=== PATIENT | male | born 1970 | race African-American/Black ===

== ENCOUNTER 2016-06-23 21:04 | Emergency (ER) | payer OTHER ==
[2016-06-23 23:56] LABS: ALANINE AMINOTRANSFERASE 53 U/L (21-72); ALBUMIN 4.2 g/dL (3.5-5.0); ALKALINE PHOSPHATASE 64 U/L (38-126); ANION GAP 9 (5-19); ASPARTATE AMINO TRANSFERASE 27 U/L (17-59); BLOOD UREA NITROGEN 14 mg/dL (7-20); CALCIUM 10.1 mg/dL (8.4-10.2); CARBON DIOXIDE 30 mmol/L (22-30); CHLORIDE 105 mmol/L (98-107); CREATININE RESULT 1.12 mg/dL (0.52-1.25); GLUCOSE 125 mg/dL (75-110); POTASSIUM 4.1 mmol/L (3.6-5.0); SODIUM 144.2 mmol/L (137-145); TOTAL PROTEIN 7.1 g/dL (6.3-8.2)
[2016-06-24] MEDS ORDERED: NAPROXEN 250 MG TABLET PO ONE (01:33)
[2016-06-24] MEDS ORDERED: HYDROCODONE/ACETAMINOPHEN 5-325 MG TABLET PO ONE (01:33)
--- NOTE | 2016-06-24 01:40 | ER Document Report ---
ED Neck/Back Problem - General Chief Complaint: Back Injury Stated Complaint: BACK PAIN Mode of Arrival: Ambulatory Information source: Patient Notes: 46 y/o F presents to ED c/o lower back pain. Pt reports sudden onset bilateral lower back sharp pain while lifting his 2 year old son this evening. Reports pain is worse with movement of back and ambulation. Reports diagnosed with colorectal CA last february and last received chemo and radiation on June 06. Denies fever, extremity weakness/numbness/tingling, saddle numbness or incontinence. Reports similar episode in the past but has been over a year since last. TRAVEL OUTSIDE OF THE [place] IN LAST 30 DAYS: No - HPI Patient complains to provider of: Lower back Onset: This evening Where: Home Onset: Sudden Timing: Still present Quality of pain: Sharp Severity: Moderate Pain Level: 3 Context: Lifting Recent injury: Possibly Associated symptoms: Like prior neck/back pain, Lower back pain. denies: None, Abdominal pain, Chest pain, Chills, Constipation, Fever, Incontinence, Motor loss, Numbness/tingling, Radiation to arm, Radiation to chest, Radiation to leg , Sensory loss, Sweaty, Unable to urinate, Upper back pain, Other Exacerbated by: Movement of trunk, Sitting position Relieved by: Supine Similar symptoms previously: Yes Recently seen / treated by doctor: No - Related Data Allergies/Adverse Reactions: No Known Allergies Allergy (Unverified 06/23/16 22:23) Past Medical History - General Information source: Patient - Social History Smoking Status: Never Smoker Chew tobacco use (# tins/day): No Frequency of alcohol use: Occasional Drug Abuse: None Lives with: Family Family History: Reviewed & Not Pertinent Patient has suicidal ideation: No Patient has homicidal ideation: No - Medical History Medical History: Negative Renal/ Medical History: Denies: Hx Peritoneal Dialysis Malignancy Medical History: Reports Hx Colorectal Cancer Surgical Hx: Negative - Immunizations Hx Diphtheria, Pertussis, Tetanus Vaccination: Yes Review of Systems - Review of Systems Constitutional: No symptoms reported EENT: No symptoms reported Cardiovascular: No symptoms reported Respiratory: No symptoms reported Gastrointestinal: No symptoms reported Genitourinary: No symptoms reported Male Genitourinary: No symptoms reported Musculoskeletal: See HPI Skin: No symptoms reported Hematologic/Lymphatic: No symptoms reported Neurological/Psychological: No symptoms reported -: Yes All other systems reviewed and negative Physical Exam - Vital signs Vitals: Temp Pulse Resp BP Pulse Ox 98.7 F 80 20 106/68 97 06/23/16 22:18 06/23/16 22:18 06/23/16 22:18 06/23/16 22:18 06/23/16 22:18 Interpretation: Normal - General General appearance: Appears well, Alert In distress: None - HEENT Head: Normocephalic, Atraumatic Eyes: Normal Pupils: PERRL - Respiratory Respiratory status: No respiratory distress Chest status: Nontender Breath sounds: Normal Chest palpation: Normal - Cardiovascular Rhythm: Regular Heart sounds: Normal auscultation Murmur: No Pulses: Normal: Radial Normal capillary refill: Yes - Abdominal Inspection: Normal Distension: No distension Bowel sounds: Normal Tenderness: Nontender Organomegaly: No organomegaly - Back Back: Tender - Tenderness with palpation to bilateral lower paraspinal musculature lumbar level. Full but painful range of motion without paresthesias or neurological deficits.. No: Normal, Nontender, Deformity/step- off, CVA tenderness, Vertebra tenderness, Scars, Scoliosis, Wounds, Other - Extremities General upper extremity: Normal inspection, Nontender, Normal color, Normal ROM , Normal strength, Normal temperature. No: Tender, Edema General lower extremity: Normal inspection, Nontender, Normal color, Normal ROM , Normal strength, Normal temperature, Normal weight bearing. 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 Labs unremarkable without hypercalcemia and no significant findings on L-spine Xray. The patient presents with back pain without signs of spinal cord compression, cauda equina syndrome, infection, aneurysm, or other serious etiology. The patient is neurologically intact, independently and steadily ambulatory without paresthesias or neurological deficits. Given the extremely low risk of these diagnoses further testing and evaluation for these possibilities does not appear to be indicated at this time. Pt appears stable for discharge and agrees with home care, follow-up with pcp and ED return precautions. - Vital Signs Vital signs: Temp Pulse Resp BP Pulse Ox 97.8 F 82 16 112/68 98 06/24/16 02:19 06/24/16 02:19 06/24/16 02:19 06/24/16 02:19 06/24/16 02:19 - Laboratory Result Diagrams: 06/23/16 23:27 Laboratory results interpreted by me: 06/23/16 23:27 Glucose 125 H - Diagnostic Test Radiology reviewed: Image reviewed, Reports reviewed Discharge - Discharge Clinical Impression: Low back pain Qualifiers: Chronicity: acute Back pain laterality: bilateral Sciatica presence: without sciatica Qualified Code(s): M54.5 - Low back pain Condition: Stable Disposition: HOME, SELF-CARE Additional Instructions: LOW BACK PAIN: Three out of every four people will have an episode of disabling back pain during their lifetime. Most commonly the pain is due to straining of the muscles and ligaments in the low back. Usual treatment includes: (1) Rest on a firm surface. Avoid lying on your stomach. (2) Ice pack the painful area. After a few days, gentle heat may be used intermittently to relax the area, or ice packs can be continued. (3) Medication may be needed -- muscle relaxers and antiinflammatory medicines are commonly used. (4) As the back improves, exercises are prescribed to strengthen the back and abdominal muscles. Your doctor will advise you on the proper care for your back at each stage in your recovery. You may be better in a few days -- or healing may take several weeks. If new symptoms of a "herniated disc" (radiation of pain, numbness, or tingling down the back of the leg or weakness in the leg) occur, you should be re-examined. Further testing may be necessary. Anti-Inflammatory Medication You have received a prescription for an antiinflammatory agent. This is an excellent, safe drug for pain control. In addition, it has potent antiinflammatory effects which are beneficial, especially in the treatment of injuries, arthritis, or tendonitis. It's best to take this medicine with food. Persons with ulcer disease or allergy to aspirin should notify their physician of this before taking this drug. Take the medication exactly as prescribed. Don't take additional doses unless instructed to do so by your doctor. If you develop wheezing, shortness of breath, hives, faintness, stomach pain, vomiting, or dark black stools, return for re-evaluation at once. ORAL NARCOTIC MEDICATION: You have been given a prescription for pain control. This medication is a narcotic. It's best taken with food, as nausea can result if taken on an empty stomach. Don't operate machinery or drive within six hours of taking this medication. Do not combine this medicine with alcohol, or with any medication which can cause sedation (such as cold tablets or sleeping pills) unless you get permission from the physician. Narcotics tend to cause constipation. If possible, drink plenty of fluids and eat a diet high in fiber and fruits. Please be aware that prescription narcotics also have the potential for abuse. People become addicted to these medications because of the general sense of wellbeing that they induce. This feeling along with a significant reduction in tension, anxiety, and aggression provides a stimulating seductive quality to these drugs. Once your pain is under control, we encourage you to discard your unused narcotics. MUSCLE RELAXERS: Muscle relaxing medications are usually prescribed for acute muscle spasm or injury to the neck and back. They are often combined with antiinflammatory pain medication for increased relief. You may stop the muscle relaxer when the pain and stiffness have improved. Start the medication again if spasms recur. Muscle relaxers may cause drowsiness, especially with the first dose. Do not operate machinery or drive while under the effects of the medication. Most muscle relaxers last up to 24 hours. Do not combine the medication with alcohol. ICE PACKS: Apply ice packs frequently against the painful area. Many different schedules are recommended, such as "20 minutes on, 20 minutes off" or "one hour ice, two hours rest." If you need to work, you may need to go longer between ice treatments. You should plan to have the area ice packed AT LEAST one fourth of the time. The ice should be applied over the wrap, tape, or splint, or over a layer of cloth -- not directly against the skin. Some ice bags have a built-in cloth and can be put directly on the skin. WARM PACKS: After approximately two days, apply gentle heat (such as a heating pad or hot water bottle) for about 20 to 30 minutes about every two hours -- at least four times daily. Warmth and elevation will help you make a more rapid recovery , and will ease the pain considerably. Do not use HOT heat, and never apply heat for longer than 30 minutes. The continuous heat can invisibly damage skin and muscles -- even when no burn is seen on the surface. Damaged muscles can make you MORE sore. FOLLOW-UP CARE: Follow-up with your primary care provider in the next 1-2 days. Return to the Emergency Department for any worsening symptoms or concerns. Prescriptions: Methocarbamol [Robaxin 500 mg Tablet] 500 mg PO Q8HP PRN #10 tablet PRN Reason: Hydrocodone/Acetaminophen [[place] 5-325 mg Tablet] 1 tab PO Q6H PRN #10 tablet PRN Reason: Naproxen 500 mg PO BIDP PRN #10 tablet PRN Reason: Forms: Return to Work Referrals: YONATHAN MOREIRA MD [Primary Care Provider] - Follow up tomorrow
[2016-06-24 02:19] VITALS: BP 112/68
== END 2016-06-24 02:19 | disposition home or self-care (01) ==
LOC: ER 21:04
DX: M54.5 Low back pain (principal); X50.0XXA Overexertion from strenuous movement or load, initial encounter; Y92.009 Unspecified place in unspecified non-institutional (private) residence as the place of occurrence of the external cause; C19 Malignant neoplasm of rectosigmoid junction; Z92.21 Personal history of antineoplastic chemotherapy; Z92.3 Personal history of irradiation
CPT/HCPCS: 36415; 72110; 80053; 99283

== ENCOUNTER → 2016-07-22 | Outpatient (CLI) | payer OTHER | LOC: RAD 09:52 | PROVIDERS: ATTEND Surgery | DX: C20 Malignant neoplasm of rectum (principal); C77.5 Secondary and unspecified malignant neoplasm of intrapelvic lymph nodes | CPT/HCPCS: 71260; 74177 ==

== ENCOUNTER → 2016-09-18 | Outpatient (CLI) | payer OTHER ==
--- NOTE | 2016-09-18 10:46 | RADIOLOGY REPORT (SQ) ---
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 RENAL FUNCTION: Not provided. COMPARISON: CT chest and abdomen and pelvis from 07/22/2016. TECHNIQUE: CT scan of the chest performed using helical scanning technique with dynamic intravenous contrast injection. Images reviewed with lung, soft tissue and bone windows. Reconstructed coronal a nd sagittal MPR images reviewed. All images stored on PACS. All CT scanners at this facility use dose modulation, iterative reconstruction, and/or weight based d osing when appropriate to reduce radiation dose to as low as reasonably achievable (ALARA). [facility]: Dose Right [facility]: CareDose [facility]: Dose Right [facility]: [place]: [employer] RADIATION DOSE: 5.60; 32.48mGy. LIMITATIONS: None. FINDINGS: AXILLAE: No adenopathy. CHEST WALL: No masses. No subcutaneous air. LUNGS: No nodules or masses. No pneumothorax. No infiltrates. PLEURA: No effusions. No calcifications. THYROID: No masses or significant asymmetry. HILAR AND MEDIASTINAL STRUCTURES: No identified masses or abnormal nodes. AORTA AND GREAT VESSELS: No aneurysm. No dissection. PULMONARY ARTERIES: No identified pulmonary emboli. Study not optimized for the pulmonary arteries. HEART: No pericardial effusion. HARDWARE AND LIFELINES: Right port, tip to the superior vena cava. BONES: No significant finding. OTHER: No other significant finding. IMPRESSION: 1. No acute or suspicious thoracic findings. COMPARISON: As above. RADIATION DOSE: 5.60; 32.48mGy. TECHNIQUE: CT scan of the abdomen and pelvis performed with intravenous and oral contrast using hue jesse scanning technique with dynamic intravenous contrast injection. Images reviewed with lung, soft tissue and bone windows. Reconstructed coronal and sagittal MPR images reviewed. Delayed images for evaluation of the urinary system also acquired and evaluated. All images stored on PACS. All CT scanners at this facility use dose modulation, iterative reconstruction, and/or weight based d osing when appropriate to reduce radiation dose to as low as reasonably achievable (ALARA). [facility]: Dose Right [facility]: [employer] [facility]: Dose Right [facility]: [employer] 4D [facility]: [employer] FINDINGS: LIVER: Mildly heterogeneous largely fatty liver, similar appearance to prior. No discrete developing lesions are appreciated. SPLEEN: Normal size. No focal lesions. PANCREAS: No masses. No significant calcifications. No adjacent inflammation or peripancreatic flui d collections. Pancreatic duct not dilated. GALLBLADDER: No identified stones by CT criteria. No inflammatory changes to suggest cholecystitis. ADRENAL GLANDS: No significant masses or asymmetry. RIGHT KIDNEY AND URETER: Upper pole 4.6 cm exophytic cyst. Otherwise normal. LEFT KIDNEY AND URETER: Mild nephrolithiasis, nonobstructive. No mass. AORTA AND VESSELS: No aneurysm. No dissection. Renal arteries, SMA, celiac without stenosis. RETROPERITONEUM: No retroperitoneal adenopathy, hemorrhage or masses. LARGE AND SMALL BOWEL: Right lower quadrant ostomy now in place. No dilated loops. No abnormal edilson l wall thickening, ascites or bulky adenopathy. Minimal pericolonic fat stranding along the splenic flexure and proximal descending colon. Postoperative changes are additionally noted in the pelvis, s uture line along the rectum with mild presacral scar/ edema. No overt pelvic adenopathy or drainable collections. APPENDIX: Normal. ABDOMINAL WALL: No hernia or masses. PERITONEAL CAVITY: As above. No ascites or adenopathy or abnormal gas. PELVIS: No mass or free fluid. Normal bladder. BONES: No significant or acute findings. OTHER: No other significant finding. IMPRESSION: 1. Postoperative abdominopelvic changes are now noted. Ostomy in the right lower quadr ant with changes in the pelvis additionally evident which are related to inter current surgery. Ther e is also mild haziness along the colon in the region of the splenic flexure which may be related to the recent surgery, less likely appendagitis or other colitis. Attention on followup studies recomme nded. No ascites or amanda abdominal implants or adenopathy. No evidence of bowel obstruction. TECHNICAL DOCUMENTATION: JOB ID: [id number] Quality ID # [id number]: Final reports with documentation of one or more dose reduction techniques (e.g., Au tomated exposure control, adjustment of the mA and/or kV according to patient size, use of iterative reconstruction technique) 2010 [employer]- All Rights Reserved
== END ==
LOC: RAD 09:06
PROVIDERS: ATTEND Internal Medicine
DX: C20 Malignant neoplasm of rectum (principal)
CPT/HCPCS: 71260; 74177

== ENCOUNTER → 2016-10-07 | Outpatient (CLI) | payer OTHER ==
--- NOTE | 2016-10-07 13:31 | RADIOLOGY REPORT (SQ) ---
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 TECHNIQUE: Sagittal and Axial imaging includes T1, T1 post gadolinium, T2, STIR and gradient echo se quences. Coronal T2/HASTE imaging. CONTRAST TYPE AND DOSE: 15 mL Mult[employer]ance. RENAL FUNCTION: GFR > 60. LIMITATIONS: None. FINDINGS: VISUALIZED UPPER ABDOMEN: Limited evaluation. No acute or suspicious findings suggested. SEGMENTATION: No transitional anatomy. The lowest well-developed disc space is labeled L5-S1. ALIGNMENT: Anatomic. VERTEBRAE: Intact. No fractures. BONE MARROW: Normal. No marrow replacement or reactive changes. Diffuse fatty marrow in the lumbosac ral region consistent with radiation effect. DISC SIGNAL: Normal. No significant abnormal signal or loss of height. POSTERIOR ELEMENTS: Generally intact. No pars defect evident. HARDWARE: None in the spine. CORD AND CONUS: Normal in size and signal intensity. Conus at the appropriate level. SOFT TISSUES: No aortic aneurysm seen. No bulky retroperitoneal adenopathy or mass. No paraspinal mas s or fluid. L1-L2: No significant spinal stenosis or exit foraminal stenosis. L2-L3: No significant spinal stenosis or exit foraminal stenosis. L3-L4: No significant spinal stenosis or exit foraminal stenosis. L4-L5: No significant spinal stenosis or exit foraminal stenosis. L5-S1: No significant spinal stenosis or exit foraminal stenosis. LOWER THORACIC: Incompletely imaged. No stenosis seen. SACRUM: Visualized upper sacrum intact. ENHANCEMENT: No abnormal enhancement. OTHER: No other significant findings. IMPRESSION: NORMAL MRI LUMBAR SPINE. INCIDENTAL FATTY MARROW IN THE LUMBOSACRAL REGION SECONDARY TO RADIATION EFFECT. TECHNICAL DOCUMENTATION: JOB ID: [id number]- All Rights Reserved
== END ==
LOC: RAD 11:27
PROVIDERS: ATTEND Family Medicine
DX: G90.09 Other idiopathic peripheral autonomic neuropathy (principal)
CPT/HCPCS: 72158; A9577

== ENCOUNTER → 2017-01-29 | Outpatient (CLI) | payer OTHER ==
--- NOTE | 2017-01-29 11:44 | RADIOLOGY REPORT (SQ) ---
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 Images reviewed with lung, soft tissue and bone windows. Reconstructed coronal and sagittal MPR images reviewed. All images stored on PACS. All CT scanners at this facility use dose modulation, iterative reconstruction, and/or weight based d osing when appropriate to reduce radiation dose to as low as reasonably achievable (ALARA). [facility]: Dose Right [facility]: CareDose [facility]: Dose Right [facility]: Ter[employer]ose 4D [facility]: [employer] CONTRAST TYPE AND DOSE: 100 cc Isovue 370- low osmolar. RENAL FUNCTION: Creatinine 0.8 BUN 6 RADIATION DOSE: Up-to-date CT equipment and radiation dose reduction techniques were employed. CTDIv ol: 7.0 - 12.5 mGy. DLP: 1633 mGy-cm. . LIMITATIONS: None. FINDINGS: LUNGS AND PLEURA: No opacities, nodules, masses. No pneumothorax. No effusions. HILAR AND MEDIASTINAL STRUCTURES: No identified masses or abnormal nodes. HEART AND VASCULAR STRUCTURES: No aneurysm or dissection. No central pulmonary emboli. No pericardi al effusion. HARDWARE: An injection port is present on the right UPPER ABDOMEN: See separate report of the CT of the abdomen. THYROID AND OTHER SOFT TISSUES: No masses. No adenopathy. BONES: No significant finding. OTHER: No other significant finding. IMPRESSION: NORMAL CT OF THE CHEST WITH IV CONTRAST. TECHNICAL DOCUMENTATION: JOB ID: [id number] Quality ID # [id number]: Final reports with documentation of one or more dose reduction techniques (e.g., Au tomated exposure control, adjustment of the mA and/or kV according to patient size, use of iterative reconstruction technique) 2010 [employer]- All Rights Reserved
--- NOTE | 2017-01-29 12:18 | RADIOLOGY REPORT (SQ) ---
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 Oral contrast. Images reviewed with lung, soft tissue, and bone win dows. Reconstructed coronal and sagittal MPR images reviewed. Delayed images for evaluation of the ur inary system also acquired. All images stored on PACS. All CT scanners at this facility use dose modulation, iterative reconstruction, and/or weight based d osing when appropriate to reduce radiation dose to as low as reasonably achievable (ALARA). [facility]: Dose Right [facility]: CareDose [facility]: Dose Right [facility]: Teradose 4D [facility]: [employer] CONTRAST TYPE AND DOSE: contrast/concentration: Isovue 370.00 mg/ml; Total Contrast Delivered: 100.0 ml; Total Saline Delivered: 72.0 ml RENAL FUNCTION: Creatinine 0.8 BUN 6 RADIATION DOSE: Total exam DLP 1633 mGy cm LIMITATIONS: None. FINDINGS: LOWER CHEST: See separate report of the CT of the chest. LIVER: The liver is diffusely low in attenuation. No masses are present. SPLEEN: Normal size. No focal lesions. PANCREAS: No masses. No significant calcifications. No adjacent inflammation or peripancreatic fluid collections. Pancreatic duct not dilated. GALLBLADDER: Gallstones are present. There is no ductal dilatation. ADRENAL GLANDS: No significant masses or asymmetry. RIGHT KIDNEY AND URETER: No solid masses. There is about a 5 cm exophytic cyst arising from the uppe r pole. No significant calcifications. No hydronephrosis or hydroureter. LEFT KIDNEY AND URETER: No solid masses. There is a nonobstructing intrarenal calculus in an upper calyx No hydronephrosis or hydroureter. AORTA AND VESSELS: No aneurysm. No dissection. Renal arteries, SMA, celiac without stenosis. RETROPERITONEUM: No retroperitoneal adenopathy, hemorrhage or masses. BOWEL AND PERITONEAL CAVITY: An ostomy is present in the right upper quadrant. No bowel masses are s een. Surgical suture is present in the rectum. APPENDIX: Not identified. PELVIS: The urinary bladder is incompletely filled and not well evaluated. No significant pelvic jaiden nopathy is seen. ABDOMINAL WALL: No masses. No hernias. BONES: No significant or acute findings. OTHER: No other significant finding. IMPRESSION: 1. Fatty infiltration of the liver. 2. Cholelithiasis. 3. Small left renal calculus. 4. No acute abnormality is seen. 5. Exophytic right renal cyst. TECHNICAL DOCUMENTATION: JOB ID: [id number] Quality ID # [id number]: Final reports with documentation of one or more dose reduction techniques (e.g., Au tomated exposure control, adjustment of the mA and/or kV according to patient size, use of iterative reconstruction technique) 2010 [employer]- All Rights Reserved
== END ==
LOC: RAD 08:30
PROVIDERS: ATTEND Internal Medicine
DX: C20 Malignant neoplasm of rectum (principal)
CPT/HCPCS: 71260; 74177

== ENCOUNTER → 2018-01-27 | Outpatient (CLI) | payer OTHER ==
--- NOTE | 2018-01-27 13:04 | RADIOLOGY REPORT (SQ) ---
EXAM DESCRIPTION: CT CHEST WITH; CT ABD/PELVIS WITH IV ORAL COMPLETED DATE/TIME: 01/27/2018 8:11 am REASON FOR STUDY: MANLIGNANT NEOPLASM OF RECTUM (C20) C20 MALIGNANT NEOPLASM OF RECTUM COMPARISON: None. CONTRAST TYPE AND DOSE: contrast/concentration: Isovue 350.00 mg/ml; Total Contrast Delivered: 93.0 ml; Total Saline Delivered: 71.0 ml RENAL FUNCTION: Creatinine 1.0 TECHNIQUE: CT scan of the chest performed using helical scanning technique with dynamic intravenous contrast injection. Images reviewed with lung, soft tissue and bone windows. Reconstructed coronal a nd sagittal MPR images reviewed. All images stored on PACS. CT scan of the abdomen and pelvis performed with intravenous and with oral contrastusing helical scan carroll technique with dynamic intravenous contrast injection. Images reviewed with lung, soft tissue a nd bone windows. Reconstructed coronal and sagittal MPR images reviewed. Delayed images for evaluat ion of the urinary system also acquired and evaluated. All images stored on PACS. All CT scanners at this facility use dose modulation, iterative reconstruction, and/or weight based d osing when appropriate to reduce radiation dose to as low as reasonably achievable (ALARA). [facility]: Dose Right [facility]: CareDose [facility]: Dose Right [facility]: Teradose 4D [facility]: [employer] RADIATION DOSE: CT Rad equipment meets quality standard of care and radiation dose reduction techniq ues were employed. CTDIvol: 7.0 - 13.1 mGy. DLP: 1597 mGy-cm. . LIMITATIONS: None. FINDINGS: CHEST: LUNGS AND PLEURA: No opacities, nodules, masses. No pneumothorax. No effusions. HILAR AND MEDIASTINAL STRUCTURES: No identified masses or abnormal nodes. HEART AND VASCULAR STRUCTURES: No aneurysm or dissection. No central pulmonary emboli. No pericardi al effusion. HARDWARE: Right port. THYROID AND OTHER SOFT TISSUES: No masses. No adenopathy. BONES: No significant finding. OTHER: No other significant finding. ABDOMEN AND PELVIS: LIVER: Mild diffuse steatosis. No developing lesions. Steatosis is probably improved compared to year's exam. SPLEEN: Normal size. No focal lesions. PANCREAS: No masses. No significant calcifications. No adjacent inflammation or peripancreatic fluid collections. Pancreatic duct not dilated. GALLBLADDER: No identified stones by CT criteria. No inflammatory changes to suggest cholecystitis. ADRENAL GLANDS: No significant masses or asymmetry. RIGHT KIDNEY AND URETER: 5 cm cyst projects off the upper pole right kidney. Otherwise normal. LEFT KIDNEY AND URETER: Punctate nonobstructive nephrolithiasis. No evidence of urinary obstruction or mass. AORTA AND VESSELS: Normal aorta. Major vascular structures are generally patent. No venous clot. RETROPERITONEUM: No retroperitoneal adenopathy, hemorrhage or masses. BOWEL AND PERITONEAL CAVITY: Postoperative changes, suture line in the rectum as before. Ostomy has been reversed. No evidence of bowel wall thickening or gross mass. No evidence of bowel obstruction . No ascites or abnormal gas or bulky adenopathy. APPENDIX: Normal. ABDOMINAL WALL: No masses. No hernias. PELVIS: No mass or free fluid. Normal bladder. BONES: No significant or acute findings. OTHER: No other significant finding. IMPRESSION: 1. No acute or suspicious abnormality in the chest. No evidence of metastatic disease. 2. No worrisome abdominopelvic abnormality. Postoperative changes, ostomy has been reversed since p rior. No suggestion of metastatic disease. TECHNICAL DOCUMENTATION: JOB ID: [id number] Quality ID # [id number]: Final reports with documentation of one or more dose reduction techniques (e.g., Au tomated exposure control, adjustment of the mA and/or kV according to patient size, use of iterative reconstruction technique) 2010 [employer]- All Rights Reserved Reading location - IP/workstation name: [email or web address]
== END ==
LOC: RAD 07:25
PROVIDERS: ATTEND Internal Medicine
DX: C20 Malignant neoplasm of rectum (principal)
CPT/HCPCS: 71260; 74177; 82565

== ENCOUNTER → 2019-02-15 | Outpatient (CLI) | payer OTHER ==
--- NOTE | 2019-02-15 09:02 | RADIOLOGY REPORT (SQ) ---
EXAM DESCRIPTION: CT CHEST WITH COMPLETED DATE/TIME: 02/15/2019 8:16 am REASON FOR STUDY: MALIGNANT NEOPLASM OF RECTUM C20 MALIGNANT NEOPLASM OF RECTUM COMPARISON: CT of the chest with contrast from 01/27/2018 TECHNIQUE: CT scan of the chest performed using helical scanning technique with dynamic intravenous contrast injection. Images reviewed with lung, soft tissue and bone windows. Reconstructed coronal and sagittal MPR and MIP images reviewed. All images stored on PACS. All CT scanners at this facility use dose modulation, iterative reconstruction, and/or weight based d osing when appropriate to reduce radiation dose to as low as reasonably achievable (ALARA). [facility]: Dose Right [facility]: CareDose [facility]: Dose Right [facility]: Teradose 4D [facility]: [employer] CONTRAST TYPE AND DOSE: 100 mL Omnipaque 350- low osmolar. RENAL FUNCTION: Creatinine 1 milligram/deciliter. RADIATION DOSE: DLP 1519.6 mGy cm LIMITATIONS: None. FINDINGS: LUNGS AND PLEURA: The trachea main bronchi are patent. There is no consolidation, pleural effusion or pneumothorax. There is no pulmonary nodule or mass. HILAR AND MEDIASTINAL STRUCTURES: No mediastinal or hilar adenopathy. HEART AND VASCULAR STRUCTURES: No aneurysm or dissection of the thoracic aorta. No cardiomegaly or p ericardial effusion. HARDWARE: The tip of the right subclavian approach single-lumen port projects within the right brachi ocephalic vein. UPPER ABDOMEN: THYROID AND OTHER SOFT TISSUES: No masses or adenopathy. BONES: No fracture or osseous lesions. OTHER: No other finding. IMPRESSION: No evidence of metastatic disease in the thorax. TECHNICAL DOCUMENTATION: JOB ID: [id number] Quality ID # [id number]: Final reports with documentation of one or more dose reduction techniques (e.g., Au tomated exposure control, adjustment of the mA and/or kV according to patient size, use of iterative reconstruction technique) 2010 [employer]- All Rights Reserved Reading location - IP/workstation name: [email or web address]
--- NOTE | 2019-02-15 09:13 | RADIOLOGY REPORT (SQ) ---
EXAM DESCRIPTION: CT ABD/PELVIS WITH IV ONLY COMPLETED DATE/TIME: 02/15/2019 8:16 am REASON FOR STUDY: MALIGNANT NEOPLASM OF RECTUM C20 MALIGNANT NEOPLASM OF RECTUM COMPARISON: CT of the abdomen and pelvis with contrast from 01/27/2018 and 09/18/2016 TECHNIQUE: CT scan of the abdomen and pelvis performed using helical scanning technique with dynamic intravenous contrast injection. No oral contrast. Images reviewed with lung, soft tissue, and bone windows. Reconstructed coronal and sagittal MPR images reviewed. Delayed images for evaluation of the urinary system also acquired. All images stored on PACS. All CT scanners at this facility use dose modulation, iterative reconstruction, and/or weight based d osing when appropriate to reduce radiation dose to as low as reasonably achievable (ALARA). [facility]: Dose Right [facility]: CareDose [facility]: Dose Right [facility]: Teradose 4D [facility]: [employer] CONTRAST TYPE AND DOSE: 100 mL Omnipaque 350- low osmolar. RENAL FUNCTION: Creatinine 1 milligram/deciliter LIMITATIONS: None. FINDINGS: LOWER CHEST: See separate report of the CT of the chest. LIVER: The liver morphology is non cirrhotic. The portal veins are patent. There is no hepatic mass . SPLEEN: No splenomegaly. PANCREAS: No abnormality P GALLBLADDER: No abnormality that is apparent on CT. ADRENAL GLANDS: No mass or focal asymmetry. RIGHT KIDNEY AND URETER: 5 x 4.8 cm fluid attenuation cyst that arises from the superior cortex. No solid masses, hydronephrosis, nephrolithiasis, hydroureter or ureterolithiasis. LEFT KIDNEY AND URETER: 4 mm calcification within an upper pole calyx. No associated hydronephrosis, hydroureter or ureterolithiasis. No solid masses AORTA AND VESSELS: No aneurysm or dissection of the abdominal aorta. The abdominopelvic vasculature is patent. RETROPERITONEUM: No retroperitoneal adenopathy, hemorrhage or mass. BOWEL AND PERITONEAL CAVITY: Findings consistent with prior bowel resection and anastomosis. There i s a colostomy scar in the right lower quadrant. There is no evidence of bowel wall thickening, obstr uction, or mass. There is no mesenteric adenopathy, free intraperitoneal fluid, or mesenteric/perito sammy mass. APPENDIX: Normal. PELVIS: Fat containing left inguinal hernia. The urinary bladder is partially distended. The prosta te gland is normal in size. There is no pelvic adenopathy, free fluid or mass. ABDOMINAL WALL: As above. BONES: No acute findings. OTHER: No other finding. IMPRESSION: 1. No evidence of recurrent or metastatic disease in the abdomen and pelvis. 2. 4 mm calculus within a left upper pole calyx. TECHNICAL DOCUMENTATION: JOB ID: [id number] Quality ID # [id number]: Final reports with documentation of one or more dose reduction techniques (e.g., Au tomated exposure control, adjustment of the mA and/or kV according to patient size, use of iterative reconstruction technique) 2010 [employer]- All Rights Reserved Reading location - IP/workstation name: [email or web address]-
== END ==
LOC: RAD 07:48
PROVIDERS: ATTEND Internal Medicine
DX: C20 Malignant neoplasm of rectum (principal)
CPT/HCPCS: 71260; 74177; 82565

== ENCOUNTER 2019-07-06 15:26 | Emergency (ER) | payer OTHER ==
--- NOTE | 2019-07-06 16:24 | RADIOLOGY REPORT (SQ) ---
EXAM DESCRIPTION: CHEST SINGLE VIEW COMPLETED DATE/TIME: 07/06/2019 4:13 pm REASON FOR STUDY: cough, sob COMPARISON: None. EXAM PARAMETERS: NUMBER OF VIEWS: One view. TECHNIQUE: Single frontal radiographic view of the chest acquired. RADIATION DOSE: NA LIMITATIONS: None. FINDINGS: LUNGS AND PLEURA: No opacities, masses or pneumothorax. No pleural effusion. MEDIASTINUM AND HILAR STRUCTURES: No masses. Contour normal. HEART AND VASCULAR STRUCTURES: Heart normal in size. Normal vasculature. BONES: No acute findings. HARDWARE: Vascular port. OTHER: No other significant finding. IMPRESSION: NO ACUTE RADIOGRAPHIC FINDING IN THE CHEST. TECHNICAL DOCUMENTATION: JOB ID: [id number] 2010 [employer]- All Rights Reserved Reading location - IP/workstation name: [email or web address]
[2019-07-06 16:30] LABS: A TYPE INFLUENZA AG NEGATIVE (NEGATIVE); B INFLUENZA AG NEGATIVE (NEGATIVE)
--- NOTE | 2019-07-06 16:50 | ER Document Report ---
ED General - General Chief Complaint: Cough Stated Complaint: COUGH/FEVER Primary Care Provider: MINA GR MD [Primary Care Provider] - Follow up as needed TRAVEL OUTSIDE OF THE [place] IN LAST 30 DAYS: No - HPI Notes: 49-year-old male presents emergency room for wanting coated 19 testing after he was exposed 4 weeks ago at his job to somebody who recently traveled back from [place], he cannot recall if he started to feel ill before after he had this exposure. He did go to his primary care office approximately 2 weeks ago for flu like symptoms, they did run out of the flu test, they did treat him empirically with Tamiflu for recommended days. He states that he has had a lingering cough. No history of asthma but states he did have colorectal cancer which he is in remission for so he felt that he was high risk. Since that time he has not had any further exposure as far as he knows to coronavirus however he works at the [employer] and has been exposed to all sorts of people, unsure of their c ovid-19 status. Patient is eating and drinking without any issues. Denies any melena. - Related Data Allergies/Adverse Reactions: No Known Allergies Allergy (Unverified 06/23/16 22:23) Home Medications: zolpidem Past Medical History - General Information source: Patient - Social History Smoking Status: Never Smoker Family History: Reviewed & Not Pertinent Patient has suicidal ideation: No Patient has homicidal ideation: No Renal/ Medical History: Denies: Hx Peritoneal Dialysis Malignancy Medical History: Reports Hx Colorectal Cancer - Immunizations Hx Diphtheria, Pertussis, Tetanus Vaccination: Yes Review of Systems - Review of Systems Constitutional: See HPI EENT: No symptoms reported Cardiovascular: No symptoms reported Respiratory: No symptoms reported, See HPI Gastrointestinal: No symptoms reported Genitourinary: No symptoms reported Male Genitourinary: No symptoms reported Musculoskeletal: No symptoms reported Skin: No symptoms reported Hematologic/Lymphatic: No symptoms reported Neurological/Psychological: No symptoms reported Physical Exam - Vital signs Vitals: Pulse Ox 97 07/06/19 15:55 - Notes Notes: PHYSICAL EXAMINATION:reviewed vital signs by RN GENERAL: Well-appearing, well-nourished and in no acute distress. HEAD: Atraumatic, normocephalic. EYES: Pupils equal round and reactive to light, extraocular movements intact, sclera anicteric, conjunctiva are normal. ENT: Nares patent, oropharynx clear without exudates. Moist mucous membranes. NECK: Normal range of motion, supple without lymphadenopathy LUNGS: Breath sounds clear to auscultation bilaterally and equal. No wheezes rales or rhonchi. HEART: Regular rate and rhythm without murmurs ABDOMEN: Soft, nontender, nondistended abdomen. No guarding, no rebound. No masses appreciated. Musculoskeletal: Normal range of motion, no pitting or edema. No cyanosis. NEUROLOGICAL: Cranial nerves grossly intact. Normal speech, normal gait. Normal sensory, motor exams PSYCH: Normal mood, normal affect. SKIN: Warm, Dry, normal turgor, no rashes or lesions noted. Course - Re-evaluation Re-evalutation: Afebrile vital stable no distress. Nurses notes reviewed. Chest x-ray negative for any acute findings such as pneumonia. Rapid strep and rapid flu were negative. Patient appears to be comfortable. Due to exposure 4 weeks ago and possible re-exposure at the [facility], patient would like testing completed. Discussed with patient that he needs to self quarantine until results are available of testing. For patient verbalized understanding of this plan of care and agree with plan of care. Discussed CDC recommendations about social distancing, self quarantining etc.After performing a Medical Screening Examination, I estimate there is LOW risk for ACUTE CORONARY SYNDROME, PULMONARY EMBOLI, RESPIRATORY FAILURE, SEPSIS OR MENINGITIS, thus I consider the discharge disposition reasonable. I have reevaluated this patient multiple times and no s ignificant life threatening changes are noted. The patient and I have discussed the diagnosis and risks, and we agree with discharging home with close follow- up. We also discussed returning to the Emergency Department immediately if new or worsening symptoms occur. We have discussed the symptoms which are most concerning (e.g., changing or worsening pain, trouble swallowing or breathing, neck stiffness, fever) that necessitate immediate return. - Vital Signs Vital signs: Temp Pulse Resp BP Pulse Ox 98.0 F 61 16 127/84 H 97 07/06/19 17:21 07/06/19 17:21 07/06/19 17:21 07/06/19 17:21 07/06/19 17:21 Discharge - Discharge Clinical Impression: Cough, covid screening Condition: Stable Disposition: HOME, SELF-CARE Additional Instructions: You were evaluated for covid-19 today. Your results may not be back for 3 to 5 days. Please practiced self-isolation and social distancing. Your rapid flu, rapid strep and chest x-ray were all negative for any acute findings. Please stay hydrated, wash your hands regularly, monitor for fevers stately 6 feet away from other people. Follow-up with your primary care provider as needed. We will contact you with your coated results if positive. Return immediately for any new or worsening symptoms. Please return to the emergency room if you experience any difficulty breathing, shortness of breath, chest pain, nausea vomiting diarrhea, abdominal pain etc. Follow up with primary care provider, call tomorrow to make followup appointment. Referrals: MINA GR MD [Primary Care Provider] - Follow up as needed
[2019-07-06 17:23] VITALS: BP 127/84
== END 2019-07-06 17:23 | disposition home or self-care (01) ==
LOC: ER 15:26
DX: R05 Cough (principal); Z11.59 Encounter for screening for other viral diseases; R50.9 Fever, unspecified
CPT/HCPCS: 36415; 71045; 87070; 87635; 87804; 87880; 99283